=== PATIENT | male | born 1945 | race Caucasian/White ===

== ENCOUNTER 2020-05-02 21:40 | Emergency (ER) | payer MEDICARE ==
[~2020-05-02] VITALS: Ht 167.6 cm; Wt 78.9 kg
--- NOTE | 2020-05-02 22:00 | NUR ---
ED Nurse Note: Patient came in the ED complaining of abdominal pain, inability to urinate for the past four hours, pt also reports constipation, last BM 04/30/2020.
--- NOTE | 2020-05-02 22:07 | Emergency Room Report ---
History of Present Illness General Chief Complaint: Abdominal Pain Source: Patient Present Illness HPI This is a 75-year-old male with a history of BPH. He presents with chief complaint of abdominal pain and unable to urinate. Onset for last few hours. He said that he was constipated today and use magnesium citrate without any relief. Normal bowel movement yesterday. In the last few hours unable to urina te. Now is very painful. Pain is 9 out of 10. Localized to the suprapubic area. Never had this problem before. No fever chills. No nausea vomiting or diarrhea. Has urge to urinate but unable. 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 History Past Medical History: see triage record, old chart reviewed Past Surgical History: other Pertinent Family History: none Social History: Denies: smoking Immunizations: other Reviewed Nursing Documentation: PMH: Agreed; PSxH: Agreed Nursing Documentation-PMH Past Medical History: No History, Except For Review of Systems Eye: Denies: eye pain, blurred vision ENT: Denies: ear pain, nose congestion, throat swelling Respiratory: Denies: cough, shortness of breath Cardiovascular: Denies: chest pain, palpitations Gastrointestinal: Reports: abdominal pain; Denies: diarrhea, nausea, vomiting Genitourinary: Reports: retention Musculoskeletal: Denies: back pain, joint pain Skin: Denies: rash Neurological: Denies: headache, numbness Endocrine: Denies: increased thirst, increased urine Hematologic/Lymphatic: Denies: easy bruising All Other Systems: negative except mentioned in HPI Physical Exam Vital Signs Date Time Temp Pulse Resp B/P (MAP) Pulse Ox O2 Delivery O2 Flow Rate FiO2 05/02/20 21:54 98.2 83 17 146/84 (104) 93 Room Air Vitals unremarkable Sp02 EP Interpretation: reviewed, normal General Appearance: well appearing, no apparent distress, alert Head: normocephalic, atraumatic Eyes: bilateral eye PERRL, bilateral eye EOMI ENT: hearing grossly normal, normal pharynx Neck: full range of motion, supple, no meningismus Respiratory: chest non-tender, lungs clear, normal breath sounds Cardiovascular #1: regular rate, rhythm, no murmur Gastrointestinal: normal bowel sounds, non tender, no mass, no organomegaly, no bruit, non-distended, other - Distended bladder Musculoskeletal: back normal, normal range of motion, gait/station normal Psychiatric: mood/affect normal Medical Decision Making Diagnostic Impression: Primary Impression: Constipation Qualified Codes: K59.00 - Constipation, unspecified Additional Impression: Acute urinary retention ER Course Patient presents with constipation and urinary retention. The constipation is probably causing his patient by pushing against the prostate. Bro showed 1 L of urine output. Enema resulted in a large amount of stool. He said he felt better. Will discharge home with a leg bag. There is no evidence of any infection. Last Vital Signs Date Time Temp Pulse Resp B/P (MAP) Pulse Ox O2 Delivery O2 Flow Rate FiO2 05/02/20 21:54 98.2 83 17 146/84 (104) 93 Room Air Status: improved Disposition: HOME, SELF-CARE Condition: Stable Additional Instructions: Follow-up with your doctor on Wednesday for recheck on your Bro. Return if symptoms worsen. Yong Rowland MD May 02, 2020 22:07
[2020-05-02] MEDS ORDERED: Fleet's Enema 133ml RECTAL ONE (22:30)
[2020-05-02 22:32] VITALS: BP 146/84
[2020-05-02 22:44] LABS: APPEARANCE,URINE CLEAR; BILIRUBIN, URINE NEGATIVE (NEGATIVE); COLOR,URINE PALE YELLOW; GLUCOSE, URINE (UA) NEGATIVE (NEGATIVE); KETONES,URINE NEGATIVE (NEGATIVE); LEUKOCYTE ESTERASE ,URINE NEGATIVE (NEGATIVE); NITRITE,URINE NEGATIVE (NEGATIVE); PH,URINE 6 (4.5-8.0); PROTEIN,URINE NEGATIVE (NEGATIVE); UROBILINOGEN,URINE NORMAL MG/DL (0.0-1.0)
--- NOTE | 2020-05-02 23:10 | NUR ---
ER DISCHARGE NOTE: Patient is cleared to be discharged per ERMD, pt is aox4, on room air, with stable vital signs. pt was given dc instructions, pt was able to verbalize understanding, pt id band removed. Patient is able to ambulate with steady gait. pt took all belongings.
== END 2020-05-02 23:10 | disposition home or self-care (01) ==
LOC: EMR 22:11
DX: K59.00 Constipation, unspecified (principal); R33.9 Retention of urine, unspecified
CPT/HCPCS: 81003; 99283